=== PATIENT | female | born 1985 | race Caucasian/White ===

== ENCOUNTER 2017-11-09 16:20 | Emergency (ER) | payer OTHER, MEDICAID ==
[2017-11-09 16:30] VITALS: BP 139/95
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
== END 2017-11-09 16:52 | disposition home or self-care (01) ==
LOC: ED 16:20
DX: S39.012A Strain of muscle, fascia and tendon of lower back, initial encounter (principal); V49.40XA Driver injured in collision with unspecified motor vehicles in traffic accident, initial encounter; Y92.481 Parking lot as the place of occurrence of the external cause; G89.29 Other chronic pain; F17.200 Nicotine dependence, unspecified, uncomplicated
CPT/HCPCS: 99282; 99283

== ENCOUNTER 2017-11-24 11:19 | Outpatient (CLI) | payer OTHER, MEDICAID ==
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
== END 2017-11-24 11:20 | disposition home or self-care (01) ==
LOC: DI 11:19
PROVIDERS: ATTEND Chiropractor
DX: M54.6 Pain in thoracic spine (principal)
CPT/HCPCS: 72070

== ENCOUNTER 2019-03-07 21:03 | Emergency (ER) | payer MEDICAID, OTHER ==
[2019-03-07 21:10] VITALS: BP 137/81
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
[2019-03-07] MEDS ORDERED: HYDROcod/ACET 5/325 Prepack 4 PO STA (21:40)
--- NOTE | 2019-03-07 21:51 | XRAY Report ---
Reason: crushing injury to left foot, swollen/bruised Procedure Date: 03/07/2019 Accession Number: [id number] / [id number] Procedure: XR - Foot 3 View LT CPT Code: FULL RESULT: EXAM: LEFT FOOT RADIOGRAPHY EXAM DATE: 03/07/2019 09:23 PM. CLINICAL HISTORY: Left dorsal and medial foot pain and swelling after tripping last night. COMPARISON: FOOT 3 VIEW LT 09/10/2016 12:46 PM. TECHNIQUE: 3 views. FINDINGS: Bones: Normal. No fractures or bone lesions. Joints: Normal. No subluxations. Soft Tissues: Normal. No soft tissue swelling. IMPRESSION: Normal foot radiography. [facility]
== END 2019-03-07 21:50 | disposition home or self-care (01) ==
LOC: ED 21:03
DX: S92.355A Nondisplaced fracture of fifth metatarsal bone, left foot, initial encounter for closed fracture (principal); W20.8XXA Other cause of strike by thrown, projected or falling object, initial encounter; Y93.89 Activity, other specified; Y92.009 Unspecified place in unspecified non-institutional (private) residence as the place of occurrence of the external cause; F17.200 Nicotine dependence, unspecified, uncomplicated
CPT/HCPCS: 99283